=== PATIENT | female | born 1980 | race Two or more races ===

== ENCOUNTER 2022-06-02 20:16 | Inpatient (IN) | payer OTHER ==
[~2022-06-02] VITALS: Ht 157.5 cm; Wt 36.3 kg
[2022-06-02] MEDS ORDERED: IV NORMAL SALINE 1000 ML BAG IV ONE (20:30)
[2022-06-03] VITALS (11 sets, daily range): BP systolic 73–138; BP diastolic 41–91
--- NOTE | 2022-06-03 00:10 | NUR ---
IO insertion put in place by ER doctor.
--- NOTE | 2022-06-03 00:33 | NUR ---
Per , unable to pull up medications due to hotel server not available, will require further follow up.
[2022-06-03 00:38] LABS: ALANINE AMINOTRANSFERASE 74 U/L (14-59); ALKALINE PHOSPHATASE 178 U/L (50-136); ASPARTATE AMINOTRANSFERASE 42 U/L (15-37); BILIRUBIN,DIRECT 0.1 mg/dL (0.0-0.2); BILIRUBIN,TOTAL 0.4 mg/dL (0.2-1.0); CARBON DIOXIDE 18 mmol/L (21-32); CHLORIDE 99 mmol/L (98-107); CREATININE 1.7 mg/dL (0.6-1.3); GLUCOSE 102 mg/dL (74-106); TOTAL PROTEIN, SERUM 4.2 g/dL (6.4-8.2); UREA NITROGEN, BLOOD 37 mg/dL (7-18)
[2022-06-03 00:40] LABS: POTASSIUM 7.6 mmol/L (3.5-5.1)
[2022-06-03 00:41] LABS: HEMATOCRIT 26.6 % (31.2-41.9); MEAN CORPUSCULAR HEMOGLOBIN 32.2 uug (24.7-32.8); MEAN CORPUSCULAR VOLUME 108.8 fL (75.5-95.3); PLATELET COUNT (AUTO) 78 K/uL (179-408)
[2022-06-03] MEDS ORDERED: CEFEPIME HCL 1 G in IV DEXTROSE 5% 50 ML IV ONE (00:45)
[2022-06-03] MEDS ORDERED: VANCOMYCIN IV 1,000 MG in IV DEXTROSE 5% 250 ML IV ONE (00:45)
[2022-06-03] MEDS ORDERED: VANCOMYCIN IV 200 ML ONE (00:53)
[2022-06-03] MEDS ORDERED: CEFEPIME HCL 1 G VIAL ONE (00:54)
[2022-06-03] MEDS ORDERED: IV NORMAL SALINE 500 ML BAG IV ONE (01:15)
[2022-06-03] MEDS ORDERED: MORPHINE SULFATE 2 MG/1 ML DISP.SYRIN IV ONE (01:30)
[2022-06-03] MEDS ORDERED: MORPHINE SULFATE 2 MG/1 ML DISP.SYRIN ONE (02:24)
[2022-06-03] MEDS ORDERED: NOREPINEPHRINE BITARTRATE 4 MG/4 ML VIAL IV ONE ×3 (04:35→22:27)
[2022-06-03 04:42] LABS: MEAN CORPUSCULAR HEMOGLOBIN 30.5 uug (24.7-32.8); MEAN CORPUSCULAR VOLUME 100.6 fL (75.5-95.3); PLATELET COUNT (AUTO) 83 K/uL (179-408)
[2022-06-03] MEDS: NOREPINEPHRINE BITARTRATE 8 MG in IV NORMAL SALINE 242 ML IV PRN ×6 (04:47→22:33)
[2022-06-03 04:53] LABS: BAND % (MANUAL) 6 % (0-10); LYMPHOCYTES % (MANUAL) 3 % (20-40); METAMYELOCYTES % 2 % (0-1); MONOCYTES % (MANUAL) 1 % (2-10); MYELOCYTES % 1 % (0-0); NEUTROPHILS % (MANUAL) 87 % (42-75)
[2022-06-03] MEDS ORDERED: MORPHINE SULFATE 4 MG/1 ML DISP.SYRIN IV ONE (05:00)
[2022-06-03 05:07] LABS: HEMATOCRIT 19.9 % (31.2-41.9)
--- NOTE | 2022-06-03 05:15 | NUR ---
Lucy cleaning performed.
[2022-06-03 05:19] LABS: CREATININE 1.4 mg/dL (0.6-1.3); POTASSIUM 4.4 mmol/L (3.5-5.1)
--- NOTE | 2022-06-03 05:40 | NUR ---
Pre-transfusion v/s T - 95.9, P - 100, BP 67/40
--- NOTE | 2022-06-03 06:10 | NUR ---
Emergency blood transfusion started. Form signed and submitted to blood bank prior to administration.
--- NOTE | 2022-06-03 06:25 | NUR ---
15 MINUTE AFTER TRANFUSION STARTED VITALS.
--- NOTE | 2022-06-03 06:25 | NUR ---
Titrated Levophed to 0.7mcg due to patient's BP 64/47
--- NOTE | 2022-06-03 06:55 | NUR ---
V/S T - 96.6, P 99, BP - 97/70
[2022-06-03 07:20] LABS: BAND % (MANUAL) 2 % (0-10); LYMPHOCYTES % (MANUAL) 2 % (20-40); MONOCYTES % (MANUAL) 1 % (2-10); NEUTROPHILS % (MANUAL) 95 % (42-75)
--- NOTE | 2022-06-03 07:20 | NUR ---
Report given to LARRY Garcia.
[2022-06-03] MEDS ORDERED: MORPHINE SULFATE 4 MG/1 ML DISP.SYRIN ONE (07:47)
--- NOTE | 2022-06-03 07:59 | NUR ---
Emergency blood transfusion of one PRBC unit finished. No adverse reaction noted. Pt tolerated to PRBC blood transfusion without complications. Continue to monitor the pt.
[2022-06-03] MEDS ORDERED: IOHEXOL 350 100 ML INFUS..BTL ONE (08:40)
[2022-06-03] MEDS ORDERED: IV NORMAL SALINE 250 ML IV ONE (08:40)
[2022-06-03] MEDS ORDERED: SWABABLE VALVE TRANSFER SET EA MC ONE (08:40)
--- NOTE | 2022-06-03 10:55 | NUR ---
SECOND BAG OF PRBS's WAS STARTED AT 1049 AT RIGHT GROIN CENTRAL LINE. NO S/S OF ADVERSE REACTION.
[2022-06-03] MEDS ORDERED: PHYTONADIONE 10 MG/1 ML AMPUL SQ ONE ×2 (11:30)
[2022-06-03] MEDS ORDERED: diphenhydrAMINE 50 MG/1 ML VIAL ONE (11:38)
[2022-06-03] MEDS ORDERED: PHYTONADIONE 10 MG/1 ML AMPUL ONE (11:38)
[2022-06-03] MEDS ORDERED: diphenhydrAMINE 50 MG/1 ML VIAL IV ONE (12:30)
[2022-06-03] MEDS ORDERED: ACETAMINOPHEN 325 MG TABLET PO ONE (12:30)
[2022-06-03] MEDS ORDERED: [UNRECOGNIZED DRUG - OTHER] IV ONE (13:00)
--- NOTE | 2022-06-03 13:05 | NUR ---
SECOND BAG OF PRBC's FINISHED. NO ADVERSE REACTION NOTED. PT TOLERATED TO PRBC TRANCFUSION WITHOUT COMPLICATIONS ( BLOOD TRASFUSION FORM).
[2022-06-03] MEDS ORDERED: EPINEPHRINE AMP 10 MG in IV NORMAL SALINE 240 ML IV PRN (13:45)
[2022-06-03] MEDS ORDERED: FENTANYL CITRATE 100 MCG/2 ML AMPUL ONE (13:53)
[2022-06-03] MEDS ORDERED: ETOMIDATE 20 MG/10 ML VIAL ONE (13:53)
[2022-06-03] MEDS ORDERED: KETAMINE HCL 500 MG/10 ML INJ ONE (13:54)
[2022-06-03] MEDS ORDERED: VASOPRESSIN 20 UNIT/ML VIAL ONE (13:54)
[2022-06-03] MEDS ORDERED: CALCIUM CHLORIDE 1 GM/10 ML DISP.SYRIN IVP ONE (13:55)
--- NOTE | 2022-06-03 14:10 | NUR ---
TRANSFUSION OF THE 1st BAG OF FFP STARTED . NO S/S OF ADVERSE REACTION.
--- NOTE | 2022-06-03 14:13 | NUR ---
TRANSFUSION OF 1st FFP BAG COMPLETED. NO ADVERSE REACTION.
[2022-06-03] MEDS ORDERED: IV D5/ 0.9% NACL 1,000 ML IV PRN (14:15)
[2022-06-03] MEDS ORDERED: LEVALBUTEROL HCL NEB 0.63 MG/3 ML NEBU NEB PRN (14:15)
[2022-06-03] MEDS ORDERED: ALBUMIN HUMAN 25% 100 ML IV ONE (14:15)
[2022-06-03] MEDS ORDERED: ACETAMINOPHEN 650 MG SUPP.RECT RC PRN (14:15)
[2022-06-03] MEDS ORDERED: ONDANSETRON 4 MG/2 ML VIAL IV PRN (14:15)
[2022-06-03] MEDS ORDERED: MORPHINE SULFATE 2 MG/1 ML DISP.SYRIN IV PRN (14:15)
[2022-06-03] MEDS ORDERED: PANTOPRAZOLE SODIUM 40 MG VIAL IV SCH (14:30)
--- NOTE | 2022-06-03 14:39 | NUR ---
STARTED TRANSFUSION OF THE 2nd BAG OF FFP. NO ADVERSE REACTION NOTED.
[2022-06-03] MEDS ORDERED: ALBUMIN HUMAN 5% 250 ML ONE (14:46)
--- NOTE | 2022-06-03 15:25 | NUR ---
TRANSFUSION OF THE 2nd UNIT OF FFP COMPLETED . NO S/S OF ADVERSE REACTION.
[2022-06-03] MEDS ORDERED: PANTOPRAZOLE SODIUM 40 MG VIAL ONE (15:37)
--- NOTE | 2022-06-03 16:10 | NUR ---
PT WAS TRANSFERED TO SURGERY UNIT.
[2022-06-03] MEDS ORDERED: THROMBIN (BOVINE) 5,000 UNITS VIAL ONE (18:11)
[2022-06-03 19:57] LABS: HEMATOCRIT 24.6 % (31.2-41.9); MEAN CORPUSCULAR HEMOGLOBIN 31.7 uug (24.7-32.8); MEAN CORPUSCULAR VOLUME 97.8 fL (75.5-95.3); PLATELET COUNT (AUTO) 51 K/uL (179-408)
[2022-06-03] MEDS ORDERED: MEROPENEM 0.5 G in IV NORMAL SALINE 50 ML IV SCH (20:00)
[2022-06-03] MEDS ORDERED: MICAFUNGIN SODIUM 100 MG in IV NORMAL SALINE 100 ML IV SCH (20:00)
[2022-06-03 20:02] LABS: CREATININE 1.3 mg/dL (0.6-1.3); POTASSIUM 4.2 mmol/L (3.5-5.1)
[2022-06-03 20:07] LABS: TOTAL PROTEIN, SERUM 3.8 g/dL (6.4-8.2)
[2022-06-03 20:53] LABS: THYROID STIMULATING HORMONE 2.515 mIU/mL (0.358-3.740)
[2022-06-03] MEDS ORDERED: IV LACTATED RINGERS SOLUTION 1,000 ML BAG IV PRN (21:45)
[2022-06-03] MEDS ORDERED: HYDROMORPHONE 2 MG/1 ML DISP.SYRIN IV PRN (22:00)
[2022-06-03 22:50] LABS: *RHEUMATOID FACTOR SCREEN NEGATIVE (NEGATIVE)
[2022-06-03] MEDS ORDERED: IV LACTATED RINGERS SOLUTION 1,000 ML IV PRN (23:15)
[2022-06-04] VITALS (10 sets, daily range): BP systolic 38–138; BP diastolic 28–91
[2022-06-04] MEDS ORDERED: MEROPENEM 500MG/NS 50ML PB ***ER PYXIS ONLY IV ONE (00:22)
[2022-06-04] MEDS ORDERED: MICAFUNGIN SODIUM 100 MG VIAL IV ONE (00:25)
[2022-06-04] MEDS ORDERED: IV NS 1000 ML 1,000 ML IV ONE (01:15)
[2022-06-04] MEDS ORDERED: MEROPENEM 0.5 G in IV NORMAL SALINE 50 ML IV SCH ×2 (01:30→10:00)
[2022-06-04] MEDS ORDERED: PHENYLEPHRINE IV 50 MG in IV NORMAL SALINE 245 ML IV PRN (01:45)
[2022-06-04] MEDS ORDERED: PHENYLEPHRINE 10 MG/1 ML VIAL ONE (01:48)
[2022-06-04] MEDS ORDERED: MICAFUNGIN SODIUM 100 MG in IV NORMAL SALINE 100 ML IV SCH (02:00)
[2022-06-04] MEDS ORDERED: NOREPINEPHRINE BITARTRATE 4 MG/4 ML VIAL IV ONE ×2 (02:49→06:53)
[2022-06-04] MEDS: NOREPINEPHRINE BITARTRATE 8 MG in IV NORMAL SALINE 242 ML IV PRN ×2 (02:52→06:56)
[2022-06-04] MEDS ORDERED: VANCOMYCIN IV 500 MG in IV DEXTROSE 5% 100 ML IV SCH ×2 (03:00→23:00)
[2022-06-04] MEDS ORDERED: VANCOMYCIN HCL 500 MG VIAL ONE (04:40)
[2022-06-04 05:06] LABS: MEAN CORPUSCULAR HEMOGLOBIN 30.6 uug (24.7-32.8); MEAN CORPUSCULAR VOLUME 95.3 fL (75.5-95.3); PLATELET COUNT (AUTO) 65 K/uL (179-408)
[2022-06-04 05:22] LABS: BILIRUBIN,TOTAL 0.7 mg/dL (0.2-1.0); CREATININE 1.7 mg/dL (0.6-1.3); MAGNESIUM 1.6 mg/dL (1.8-2.4); PHOSPHOROUS 7.8 mg/dL (2.5-4.9); POTASSIUM 5.2 mmol/L (3.5-5.1); TOTAL PROTEIN, SERUM 3.2 g/dL (6.4-8.2)
[2022-06-04 05:51] LABS: HEMATOCRIT 20.4 % (31.2-41.9)
--- NOTE | 2022-06-04 07:30 | NUR ---
received pt report from shift foreman RN. pt intubated ETT 6.5, 22 at lip line, AC 10, TV 250, Peep 4, FiO2 50%, saturating 90-100%. pt g tube on low intermittent suction, bloody, tar colored output in collection canister. pt has rangel in place, anuric. will continue to monitor.
--- NOTE | 2022-06-04 09:30 | NUR ---
pt blood pressure low, MD aware, will follow orders
--- NOTE | 2022-06-04 09:30 | NUR ---
unable to administer scheduled medications as pt was declining, pt on pressors, dopamine, bicarb, vasopressin and blood to start. will continue to monitor.
--- NOTE | 2022-06-04 09:43 | NUR ---
End of Shift Summary Pt arrived on the unit approximately 1999 on [place] hospital bed [place]. Pt is accompanied by AMADO, RN, Respiratory Therapist. Pt is intubated on AC10, TV 250, FIO2 60% and Peep 4. Pt is A/O x0 non responsive. . See physical assessment for details. Pt remain anuric with a few blood clots in the rangel catheter. GT has a small amout of coffee ground substance at the begining of the shift. Pt has abdominal dressing in place which is oozing with blood. BP low, pt on NorepinephrineE] MICH Banuelos called and informed of pt's low BP, order recieved to bolus the pt with 1 unit NS. Order executed as given. Pt also started on Neospsynephrine as ordered by MICH Banuelos. PRessors titrated to max level. Then Dr. Andrews called to inform him of the hypotension and other vital signs. Order to monitor at this time. Lab called Hgb 6.6, and 20.4. Report endorsed to day shift RN. received update on pt's condition.
[2022-06-04] MEDS ORDERED: MAGNESIUM SULFATE/D5W 100 ML IV SCH (10:00)
--- NOTE | 2022-06-04 10:00 | NUR ---
pt on Norepinephrine and neosynephrine, BP still low, abd dressing in place and reinforced, oozing blood. MD made aware. lab called to obtain 1 unit, lab stated they will need to call their market asset protection manager to get access to blood.
[2022-06-04 10:44] LABS: ABG BASE EXCESS -19.2 mmol/L; ABG PCO2 24.1 mmHg (35.0-45.0); ABG PH 7.141 (7.350-7.450); ABG PO2 170.8 mmHg (75.0-100.0); ABG SITE RIGHT RADIAL; COHb 1.3 % (0.5-1.5); MetHb 0.3 % (0.0-1.5); O2Hb 96.7 % (94.0-97.0); VENT MODE VENT - A/C; VT, ABG 250 mL
[2022-06-04] MEDS ORDERED: VASOPRESSIN 40 UNIT in IV NORMAL SALINE 40 ML IV PRN (10:45)
[2022-06-04] MEDS ORDERED: HYDROCORTISONE SOD SUCCINATE 100 MG/2 ML VIAL IV SCH (11:00)
[2022-06-04] MEDS ORDERED: SODIUM BICARBONATE 8.4% 150 MEQ in IV D5W 1000ML 1,000 ML IV PRN (11:00)
[2022-06-04] MEDS ORDERED: NOREPINEPHRINE BITARTRATE 32 MG in IV NORMAL SALINE 218 ML IV PRN (11:00)
[2022-06-04] MEDS ORDERED: PHENYLEPHRINE IV 100 MG in IV NORMAL SALINE 240 ML IV PRN (11:00)
[2022-06-04] MEDS ORDERED: PHYTONADIONE 10 MG/1 ML AMPUL SQ SCH (11:30)
[2022-06-04] MEDS ORDERED: DOPamine IV DRIP 400 MG/250ML 250 ML IV PRN (12:45)
--- NOTE | 2022-06-04 12:50 | NUR ---
blood started, no reactions, will continue to monitor.
--- NOTE | 2022-06-04 13:05 | NUR ---
unable to obtain blood pressure,
--- NOTE | 2022-06-04 13:15 | NUR ---
Patient apnic for 5 minutes Pupils fixed and dilated No audible heart tones, breath sounds No palpable pulses for 1 minute no corneal reflexs Pt pronounced at 1315. Physician notified Tiffani Acosta RN Nursing Notes
--- NOTE | 2022-06-04 17:00 | NUR ---
family arranged cremation for pt, facility called and pick to arrive between [phone].
[2022-06-04 17:14] LABS: BAND % (MANUAL) 4 % (0-10); LYMPHOCYTES % (MANUAL) 8 % (20-40); MONOCYTES % (MANUAL) 2 % (2-10); NEUTROPHILS % (MANUAL) 86 % (42-75)
--- NOTE | 2022-06-04 19:11 | NUR ---
Received handoff report from LARRY Nixon. Patient time of - 1350. Patient is pending transfer to outside [facility] [place] per family request to be cremated. The ETA for transport is approximately [phone].
--- NOTE | 2022-06-04 22:52 | NUR ---
Called [facility], and requested for status update for transfer. Respresentative stated that, they are not ready to pick the patient up and advised to [place] [facility] [place] further notice. States that the massage coordinator will call nursing nuclear medicine supervisor once they have determined an appropriate pickup time. it service continuity supervisor was called to transport [place] [facility] currently awaiting for transfer.
[2022-06-04] MEDS ORDERED: EPHEDRINE SULFATE 50 MG/ML AMPUL IM ONE (23:09)
[2022-06-04] MEDS ORDERED: PHENYLEPHRINE 10 MG/1 ML VIAL IV ONE (23:09)
[2022-06-04] MEDS ORDERED: GLYCOPYRROLATE 0.2 MG/ML VIAL IJ ONE (23:09)
[2022-06-04] MEDS ORDERED: SEVOFLURANE 250 ML BOTTLE IH ONE (23:09)
--- NOTE | 2022-06-04 23:13 | NUR ---
Nursing farm supervisor, Anderson, arrived to transport patient [place] [facility] [place]
[2022-06-05] MEDS ORDERED: PHYTONADIONE 10 MG/1 ML AMPUL SQ SCH (06:00)
[2022-06-05 10:06] LABS: *IMMUNOGLOBULIN G, SERUM 479 mg/dL (586-1602); IMMUNOGLOBULIN M, SERUM 39 mg/dL (26-217)
[2022-06-05 12:06] LABS: *ANTI-SCLERODERMA-70 AB <0.2 AI (0.0-0.9); *SJOGREN'S ANTI-SS-A <0.2 AI (0.0-0.9); *SJOGREN'S ANTI-SS-B <0.2 AI (0.0-0.9); *SMITH ANTIBODIES <0.2 AI (0.0-0.9); ANTI-DNA(DS) AB, QN <1 IU/mL (0-9)
[2022-06-06 03:06] LABS: HEPATITIS B SURFACE AG Negative (Negative)
[2022-06-06 12:06] LABS: A/G RATIO 1.1 (0.7-1.7); ALBUMIN 1.6 g/dL (2.9-4.4); ALPHA-1-GLOBULIN 0.2 g/dL (0.0-0.4); ALPHA-2-GLOBULIN 0.4 g/dL (0.4-1.0); BETA GLOBULIN 0.4 g/dL (0.7-1.3); GAMMA GLOBULIN 0.5 g/dL (0.4-1.8); GLOBULIN, TOTAL 1.5 g/dL (2.2-3.9); M-SPIKE Not Observed g/dL (Not Observed)
== END 2022-06-04 23:10 | DRG 853 ==
LOC: ER 20:16 → TRANSITION 06-03 10:45 → CCU 06-03 17:24
PROVIDERS: ADMIT Internal Medicine; ATTEND Internal Medicine
PROC: 0DBG0ZZ Excision of Left Large Intestine, Open Approach (ICD-10-PCS; principal; 2022-06-03)
PROC: 0DH60UZ Insertion of Feeding Device into Stomach, Open Approach (ICD-10-PCS; 2022-06-03)
PROC: 0D1E0Z4 Bypass Large Intestine to Cutaneous, Open Approach (ICD-10-PCS; 2022-06-03)
PROC: 0DNU0ZZ Release Omentum, Open Approach (ICD-10-PCS; 2022-06-03)
PROC: 30233N1 Transfusion of Nonautologous Red Blood Cells into Peripheral Vein, Percutaneous Approach (ICD-10-PCS; 2022-06-03)
PROC: 30233K1 Transfusion of Nonautologous Frozen Plasma into Peripheral Vein, Percutaneous Approach (ICD-10-PCS; 2022-06-03)
PROC: 30233R1 Transfusion of Nonautologous Platelets into Peripheral Vein, Percutaneous Approach (ICD-10-PCS; 2022-06-03)
PROC: 0BH18EZ Insertion of Endotracheal Airway into Trachea, Via Natural or Artificial Opening Endoscopic (ICD-10-PCS; 2022-06-03)
PROC: 5A1935Z Respiratory Ventilation, Less than 24 Consecutive Hours (ICD-10-PCS; 2022-06-03)
DX: A41.9 Sepsis, unspecified organism (principal); D65 Disseminated intravascular coagulation [defibrination syndrome]; G92.8 Other toxic encephalopathy; K63.1 Perforation of intestine (nontraumatic); J96.00 Acute respiratory failure, unspecified whether with hypoxia or hypercapnia; N17.0 Acute kidney failure with tubular necrosis; R65.21 Severe sepsis with septic shock; K65.0 Generalized (acute) peritonitis; E46 Unspecified protein-calorie malnutrition; E87.20 Acidosis, unspecified; N82.3 Fistula of vagina to large intestine; R64 Cachexia; D62 Acute posthemorrhagic anemia; Z68.1 Body mass index [BMI] 19.9 or less, adult; C53.9 Malignant neoplasm of cervix uteri, unspecified; D50.0 Iron deficiency anemia secondary to blood loss (chronic); E83.42 Hypomagnesemia; E87.5 Hyperkalemia; G89.4 Chronic pain syndrome; K21.9 Gastro-esophageal reflux disease without esophagitis; K66.0 Peritoneal adhesions (postprocedural) (postinfection); Z20.822 Contact with and (suspected) exposure to COVID-19; Z66 Do not resuscitate; Z87.891 Personal history of nicotine dependence; Z92.21 Personal history of antineoplastic chemotherapy; Z93.1 Gastrostomy status; Z98.82 Breast implant status; M89.8X9 Other specified disorders of bone, unspecified site; D69.59 Other secondary thrombocytopenia
CPT/HCPCS: 36415; 36556; 36600; 70030-TC; 71045; 71275; 82330; 82747; 82784; 83550; 83605; 83735; 84100; 84155; 84157; 84165; 84443; 84484; 84520; 85014; 85025; 85730; 86038; 86140; 86334; 86430; 86706; 86803; 86850; 86900; 86901; 86920; 87040; 87340; 87806; 93005; 94002; 94003; 99082-TC; A4663; C9113; G0378; J0171; J0692; J1200; J2185; J2248; J2270; J2370; J3010; J3370; J3430; J3475; J3490; J7040; J7070; J7120; J7168; P9016; P9035; P9045; P9059; Q9967